=== PATIENT | female | born 1955 | race Caucasian/White ===

== ENCOUNTER 2022-09-30 07:00 | Day surgery (SDC) | payer OTHER ==
[~2022-09-30] VITALS: Ht 162.6 cm; Wt 68.0 kg
[2022-09-30] MEDS ORDERED: fentaNYL CITRATE/PF 100 MCG/2 ML AMP ONE (07:30)
[2022-09-30] MEDS ORDERED: MIDAZOLAM HCL 5 MG/5 ML VIAL ONE (07:31)
[2022-09-30] MEDS ORDERED: SIMETHICONE 40 MG/0.6 ML ML ONE (07:37)
[2022-09-30] MEDS ORDERED: MEPERIDINE 100 MG INJ. 100 MG/ML VIAL ONE (08:17)
[2022-09-30 12:52] VITALS: BP_SYST 105
== END 2022-09-30 09:54 | disposition home or self-care (01) ==
LOC: SDS 07:00 → SMU 07:01 → SDS 09:54
PROVIDERS: ATTEND Internal Medicine Gastroenterology
DX: K92.1 Melena (principal); K63.5 Polyp of colon; K21.00 Gastro-esophageal reflux disease with esophagitis, without bleeding; K64.8 Other hemorrhoids; K29.70 Gastritis, unspecified, without bleeding; F41.9 Anxiety disorder, unspecified; M19.90 Unspecified osteoarthritis, unspecified site; E78.5 Hyperlipidemia, unspecified; Z88.8 Allergy status to other drugs, medicaments and biological substances; Z79.899 Other long term (current) drug therapy
CPT/HCPCS: 45385; 43239; 87081; 36415; 88305; 88312; 88313; 99152; G0378; J2250; J2175; J3010